=== PATIENT | female | born 1945 | race African-American/Black ===

== ENCOUNTER 2017-01-13 14:30 | Inpatient (IN) | payer MEDICARE, OTHER ==
--- NOTE | ~2017-01-13 | DS ---
Discharge Summary [facility] [address] [place]. [address] NAME: NIECY CARIAS : 43 STATUS : DIS IN PAT#: [id number] AGE: 71 ADM/REG DATE : 01/13/17 MR#: [id number] REPORT SERV DATE: 02/18/17 DICTATED BY: SANGEETHA PAYNE DATE: 02/17/17 REPORT STATUS : Draft TRANSCRIBED BY: MODL DATE: 02/17/17 ADMISSION DATE: 01/13/2017 DISCHARGE DATE: 01/15/2017 Ms. Stinson is a 71-year-old female with a history of hypertension, who presented to the hospital with a complaint of abdominal pain, nausea, and vomiting. For further details, please refer to H and P dictated on 01/13/[address] Sesay. HOSPITAL COURSE: Upon presentation to the emergency room, preliminary workup included a CT of abdomen and pelvis, which was concerning for acute cholecystitis. Surgery was subsequently consulted. The patient was placed on IV antibiotics. She was also placed on IV PPI and was also placed on IV fluids. She was kept n.p.o. and Surgery was subsequently consulted. The patient was subsequently evaluated by Surgery with plans for surgical intervention. The patient was subsequently taken by Surgery for surgical intervention and the patient was subsequently discharged by Surgery. The patient was taken to surgery on 01/15/2017 for surgical intervention. The last time that I saw the patient was 01/15/2017. The patient was taken to the OR. Plans were for the patient to be taken to the OR for surgical intervention. I did not see the patient after this date as the patient was taken to the OR, and subsequently discharged by surgeon, so discharge planning, medication reconciliation, and discharge plans was performed by Surgery. DICTATED BY: MD BETSY Haddad/REKHA Sangeetha Payne MD / [id number] CC: MD JESS Haddad PAUL E
--- NOTE | ~2017-01-13 | HP ---
History And Physical [address] [place]. [address] NAME: NIECY GREEN : 43 STATUS : ADM IN [facility]#: [id number] AGE: 71 ADM/REG DATE : 01/13/17 MR#: [id number] REPORT SERV DATE: 01/14/17 DICTATED BY: TYRESE ORTEGA DATE: 01/13/17 REPORT STATUS : Draft TRANSCRIBED BY: MODGonzalez DATE: 01/13/17 DATE OF ADMISSION: 01/13/2017 POINT OF ENTRY: [facility] Emergency Department. CHIEF COMPLAINT: Abdominal pain, nausea, and vomiting. HISTORY OF PRESENT ILLNESS: Ms Green is a 71-year-old female with history of hypertension, who presents to the emergency department today with a three to four-day history of primarily epigastric abdominal pain with associated nausea and vomiting. The patient states that her symptoms began on Friday afternoon, it is primarily epigastric in location without any radiation described as cramping as well as sharp and stabbing in nature. The patient also has had multiple episodes of nausea and vomiting over the weekend as well. She also developed some diarrhea which began today. She denies any fevers, but does report some subjective chills and night sweats over the weekend. Initial evaluation in the emergency department was notable for a pulse of 105; white count 11.9. She was noted to be in acute kidney injury with a BUN of 29 and creatinine 1.78. Urinalysis was not a sterile sample. CT of the abdomen and pelvis showed a distended gallbladder with thickened wall as well as some inflammatory stranding concerning for acute cholecystitis. Right upper quadrant ultrasound was reportedly not concerning for acute cholecystitis, therefore she was admitted to the Hospitalist Service for further evaluation and management. REVIEW OF SYSTEMS: Comprehensive review of systems otherwise negative unless listed in history of present illness. PREVIOUS MEDICAL HISTORY: Hypertension. PAST SURGICAL HISTORY: 1. Right ankle surgery. 2. Tubal ligation. ALLERGIES: NO KNOWN DRUG ALLERGIES. HOME MEDICATIONS: 1. Norvasc 5 mg daily. 2. Nystatin topical cream p.r.n. SOCIAL HISTORY: Denies any tobacco, alcohol, or illicits. FAMILY MEDICAL HISTORY: Extensive family history of diabetes in both parents and siblings. LABS AND IMAGING: History And Physical [address] [place]. [address] NAME: NIECY GREEN : 43 STATUS : ADM IN PAT#: [id number] AGE: 71 ADM/REG DATE : 01/13/17 MR#: [id number] REPORT SERV DATE: 01/14/17 DICTATED BY: TYRESE ORTEGA DATE: 01/13/17 REPORT STATUS : Draft TRANSCRIBED BY: MODL DATE: 01/13/17 1. White count is 11.9, hemoglobin is 14.3, hematocrit is 43.1, and platelet count is 333. 2. Sodium is 140, potassium 3.1, chloride 103, carbon dioxide 27, BUN 29, creatinine 1.78, glucose is 121, calcium is 10.0, protein is 8.8, albumin is 3.5, bilirubin is 0.6, ALT is 35, AST 25, and alkaline phosphatase is 130. 3. Lipase is 116. 4. Lactic acid is pending at the time of dictation. 5. Urinalysis: Spec gravity is 1.028, cloudy, large leukocyte esterase with 93 red blood cells and greater than 180 white blood cells per high field with [address] scan of the abdomen and pelvis shows distended gallbladder with thickened wall as well as some pericholecystic inflammatory stranding concerning for acute cholecystitis. 7. Right upper quadrant ultrasound, per verbal report from the ER physician, was negative for acute cholecystitis. Per my discussion with Dr. Borjas of General Surgery, he personally reviewed both CT and abdominal ultrasound and did not notice any stones on either imaging as well as has low suspicion for acute cholecystitis. PHYSICAL EXAMINATION: VITAL SIGNS: Temperature is 98.0 degrees Fahrenheit, pulse is 105, respirations 14, saturating 96% on room air, and blood pressure 127/75. On recheck, blood pressure is now 117/75 and pulse of 82. GENERAL: The patient is awake and alert, in no acute distress. Resting comfortably in bed. She is a well-developed, well-nourished, -[place] female. Family is at bedside. HEENT: Atraumatic and normocephalic. Slightly dry mucous membranes. Pupils are equal, round, reactive to light and accommodation. Extraocular eye movement intact. No scleral icterus. NECK: No jugular venous distention. No carotid bruits. CARDIAC: Regular rate and rhythm. No murmurs, rubs, or gallops. Normal S1, S2. LUNGS: Clear to auscultation bilaterally. No wheezes, rhonchi, or crackles. ABDOMEN: Soft. She is tender to palpation over the epigastrium and right upper quadrant. In my opinion, she has a positive Mohan sign. She has no guarding or rigidity, but does have some mild rebound tenderness on right upper quadrant. Hypoactive bowel sounds throughout. EXTREMITIES: Warm and perfused. No cyanosis, clubbing, or edema. SKIN: Warm and dry. PSYCH: Affect appropriate. NEURO: Alert and oriented x3. Cranial nerves 2 through 12 grossly intact. Speech is normal. Gait not assessed. ASSESSMENT AND PLAN: Ms Green is a 71-year-old female, who presents with a few day history of epigastric abdominal pain with nausea and vomiting, and found to have evidence of dehydration, acute kidney injury, hypokalemia as well as imaging initially concerning for acute cholecystitis; however, now ruled out by right upper quadrant ultrasound. PROBLEM LIST: 1. Right upper quadrant and epigastric abdominal pain with nausea and vomiting. 2. Possible acute cholecystitis. 3. Leukocytosis. 4. Acute kidney injury and dehydration. History And Physical [address] [address] NAME: NIECY GREEN : 43 STATUS : ADM IN [facility]#: [id number] AGE: 71 ADM/REG DATE : 01/13/17 MR#: [id number] REPORT SERV DATE: 01/14/17 DICTATED BY: TYRESE ORTEGA DATE: 01/13/17 REPORT STATUS : Draft TRANSCRIBED BY: REKHA DATE: 01/13/17 5. Hypokalemia. 6. Hypertension. PLAN: 1. Right upper quadrant and epigastric abdominal pain with nausea, vomiting, unclear etiology at this time as CMP is unremarkable. CT scan as well as right upper quadrant ultrasound was possibly concerning for cholecystitis; however, Surgery upon further review does not think this is acute rivera based on imaging alone. We will place the patient empirically on some IV PPI. Follow General Surgical consultation in the morning. They have recommended a HIDA scan, which I have ordered. We will make the patient nothing by mouth, pending HIDA evaluation and General Surgical consultation. 2. Possible acute cholecystitis. CT was initially concerned for acute cholecystitis; however, repeat right upper quadrant ultrasound reportedly is negative for cholecystitis. Dr. Borjas of General Surgery reviewed both sets of imaging and I have discussed this case personally with him. We will make the patient nothing by mouth. Continue IV fluid hydration as well as empiric IV Zosyn until Dr. Borjas can see the patient in the morning. I have also ordered a HIDA scan, per his directions for the morning. 3. Leukocytosis, unclear etiology. Checking a chest x-ray as well as a repeat UA as it was not a sterile catch, follow up blood cultures. Checking procalcitonin as well as lactic acid level. 4. Acute kidney injury and dehydration. Provide aggressive IV fluid hydration. 5. Hypokalemia. Repleting p.r.n. 6. DVT prophylaxis. Lovenox subcu. CODE STATUS: The patient wished to be full code. JCB/MODL Tyrese Ortega MD / [id number] CC: Juanita Aj M.D. Clifford Vargas, PHD
--- NOTE | ~2017-01-13 | OP ---
Record Of Operation [facility] [address] [place]. [address] NAME: NIECY GREEN : 43 STATUS : DIS IN PAT#: [id number] AGE: 71 ADM/REG DATE : 01/13/17 MR#: [id number] REPORT SERV DATE: 01/17/17 DICTATED BY: AGUSTÍN BAIRES DATE: 01/17/17 REPORT STATUS : Draft TRANSCRIBED BY: MODL DATE: 01/17/17 DATE OF PROCEDURE: 01/15/2017 PREOPERATIVE DIAGNOSIS: Cholecystitis. POSTOPERATIVE DIAGNOSIS: Acute on chronic cholecystitis. PROCEDURE PERFORMED: Laparoscopic cholecystectomy. SURGEON: Agustín Baires M.D. ANESTHESIA: General. ESTIMATED BLOOD LOSS: 5 mL. SPECIMEN REMOVED: Gallbladder. BRIEF HISTORY: Ms Green is a 71-year-old female, presents with acute onset of abdominal pain, and nausea and vomiting. Workup in the emergency room did not reveal any gallstones; however, HIDA scan demonstrated nonvisualization of the gallbladder consistent with cholecystitis. She presents today for cholecystectomy. FINDINGS AT TIME OF PROCEDURE: Ms Green's gallbladder was acute and chronically inflamed. Limited examination of her liver, stomach, small and large bowel revealed no other obvious abnormalities. DESCRIPTION OF PROCEDURE: Following informed consent, the patient was taken to the operating room and placed supine on the OR table. After successful induction of general endotracheal anesthesia, her abdomen was prepped and draped in usual sterile fashion. An umbilical skin incision was made and skin hooks were used to elevate the skin edges and anterior rectus fascia. There was a small umbilical hernia defect, and we were able to use this as a portal of entry into the abdominal cavity. A non-bladed 5 mm trocar was then inserted through this orifice and connected to insufflation tubing, and the peritoneal cavity was insufflated with carbon dioxide to a resting pressure of 15 mmHg. A 5 mm laparoscope was then introduced. The underlying bowel and vascular structures were carefully inspected and noted to be free from injury from initial trocar insertion. Three additional trocars were placed under direct visualization, a 10 mm subxiphoid epigastric trocar followed by two 5 mm trocars placed in the right upper quadrant. The gallbladder was grasped at its fundus and retracted in lateral and cephalad direction toward the patient's right shoulder blade. The infundibulum of the gallbladder was grasped and retracted inferiorly and laterally toward the patient's right anterior superior iliac spine. Cystic duct and cystic artery were dissected free from the underlying fatty peritoneal structures and once a critical view of safety was obtained and both these structures were seen to clearly transverse into the infundibulum of the gallbladder, they were both triply clipped and ligated, and divided with scissors. The gallbladder was then dissected free from the gallbladder fossa using blunt dissection and cautery. It was placed inside an endoscopic retrieval pouch and removed from Record Of Operation [address] [address] NAME: NIECY GREEN : 43 STATUS : DIS IN PAT#: [id number] AGE: 71 ADM/REG DATE : 01/13/17 MR#: [id number] REPORT SERV DATE: 01/17/17 DICTATED BY: AGUSTÍN BAIRES DATE: 01/17/17 REPORT STATUS : Draft TRANSCRIBED BY: REKHA DATE: 01/17/17 the 10 mm trocar site, intact, and without incident. Gallbladder fossa was copiously irrigated. Hemostasis was secured with cautery and there was no evidence of bile leakage from the gallbladder fossa or cystic duct stump. The two 5 mm trocars were removed followed by the 10 mm subxiphoid trocar. The sites were observed. Hemostasis was found to be secured. The peritoneal cavity was desufflated. Laparoscope was removed. Fascia at the 10 mm umbilical trocars were approximated using 0 Vicryl suture. Skin edges of all four incisions were approximated using 4-0 Monocryl subcuticular suture and Dermabond. At the completion of the case, all sponge and needle counts were correct. The patient was extubated and transferred to recovery room in satisfactory condition, having suffered no apparent perioperative complications. CATERINA/REKHA Agustín Baires M.D. / [id number] CC: MD NANCY Haddad
--- NOTE | ~2017-01-13 | CN ---
Consultation Report [facility] [address] [place]. [address] NAME: NIECY GREEN : 43 STATUS : ADM IN PAT#: [id number] AGE: 71 ADM/REG DATE : 01/13/17 MR#: [id number] REPORT SERV DATE: 01/14/17 DICTATED BY: AGUSTÍN BAIRES DATE: 01/14/17 REPORT STATUS : Draft TRANSCRIBED BY: MODGonzalez DATE: 01/14/17 CONSULTATION NOTE DATE OF CONSULTATION: 01/14/2017 REASON FOR REQUEST: Evaluation for possible cholecystitis. HISTORY: Ms. Green is a 71-year-old female who was in her usual state of health when Friday she started developing abdominal pain. She states the pain was diffusely across her whole abdomen and did not localize at all with associated nausea and vomiting. She never experienced pain symptoms before. The pain is now completely resolved. She denies any fever, chills, or jaundice. No other associated symptoms or problems. She has a primary care physician, but never had any GI issues in the past. She denies any intolerance to fatty foods and no radiation to her back. She also developed diarrhea as well. She recently lost her cousin suddenly and unexpectedly on Friday after taking him to [facility] or [facility] Room. He actually suddenly in the car, so she has been under quite a bit of stress since this event. In the emergency Room, she had a CT scan performed that demonstrated a distended gallbladder but no gallstones were seen and no intravenous contrast was administered so really could not evaluate for enhancement of the gallbladder wall. She then had an ultrasound performed that again showed gallbladder distention but no gallstones, and she did not have a Mohan sign. PAST MEDICAL HISTORY: Significant for hypertension. PREVIOUS SURGERIES: Include a tubal ligation, ankle surgery. MEDICATIONS: Norvasc. ALLERGIES: NO KNOWN DRUG ALLERGIES. SOCIAL HISTORY: She denies tobacco, alcohol, or drug use. FAMILY HISTORY: Significant for diabetes and hypertension. REVIEW OF SYSTEMS: Comprehensive 12-point review of systems obtained and completely negative other than what is mentioned in history of present illness. PHYSICAL EXAMINATION: VITAL SIGNS: Temperature is 98.2, pulse 95, respirations 18, and blood pressure 120/64. GENERAL: She is a well-developed female, in no acute cardiopulmonary distress. HEENT: Pupils are equal, round, and reactive to light. Extraocular movements are intact. Conjunctivae are nonicteric. NECK: Supple. She has no jugular venous distention. No carotid bruits. No cervical Consultation Report [facility] [place] [address] [place]. [address] NAME: NIECY GREEN : 43 STATUS : ADM IN [facility]#: [id number] AGE: 71 ADM/REG DATE : 01/13/17 MR#: [id number] REPORT SERV DATE: 01/14/17 DICTATED BY: AGUSTÍN BAIRES DATE: 01/14/17 REPORT STATUS : Draft TRANSCRIBED BY: REKHA DATE: 01/14/17 lymphadenopathy. PULMONARY: Normal respiratory effort. Breath sounds are clear. CARDIOVASCULAR: Regular rate and rhythm. ABDOMEN: Soft. She is completely nontender with normoactive bowel sounds and no peritoneal signs. No Mohan sign. EXTREMITIES: No clubbing, cyanosis, or edema. LABORATORY DATA: White blood cell count 8.9, hematocrit 35, platelet count 276. Sodium 143, potassium 3.4, chloride 107, CO2 of 24, BUN 27, creatinine 1.4, glucose 90. CT scan of the abdomen and pelvis was obtained and demonstrates a distended gallbladder but no gallstones and ultrasound reveals same. ASSESSMENT: Nausea, vomiting, diarrhea, and dehydration with hypokalemia and renal insufficiency. PLAN: Agree with aggressive IV fluid hydration and correction of electrolytes. We will obtain a HIDA scan on her to help clarify whether this is an acute cholecystitis. If it is she will likely require a cholecystectomy. We will await the HIDA scan result and continue to follow this patient along with you. CATERINA/REKHA Agustín Baires M.D. / [id number] CC: Sanjana Bonner
[2017-01-13 12:10] LABS: BASOPHILS 0.2 %; BASOPHILS ABSOLUTE 0.02 10/3/uL (0.0-0.16); EOSINOPHILS 3.3 %; EOSINOPHILS ABSOLUTE 0.39 10/3/uL (0.0-0.53); HEMATOCRIT 43.1 % (36.0-48.0); HEMOGLOBIN 14.3 g/dL (12.0-16.0); IMMATURE GRANULOCYTES 0.2 %; IMMATURE GRANULOCYTES ABSOLUTE 0.02 10/3/uL (0.0-0.11); LYMPHOCYTES ABSOLUTE 2.62 10/3/uL (0.67-4.30); MEAN CORPUSCULAR HEMOGLOB 28.4 pg (26.0-34.0); MEAN CORPUSCULAR VOLUME 85.5 fL (80-100); MEAN PLATELET VOLUME 10.1 fL (9.2-13.0); MONOCYTES 6.6 %; MONOCYTES ABSOLUTE 0.79 10/3/uL (0.21-1.20); NEUTROPHILS 67.7 %; NEUTROPHILS ABSOLUTE 8.06 10/3/uL (2.02-8.40); PLATELET COUNT 333 10/3/uL (150-400); RBC DISTRIBUTION WIDTH 14.9 % (12.0-16.0); RED CELL COUNT 5.04 10/6/uL (4.0-5.6)
[2017-01-13 12:11] LABS: ER CBC TAT 0 Hrs 03 Mins; MANUAL DIFF NO %; MEAN CORPUS HGB CONC 33.2 g/dL (32.0-36.0); WHITE BLOOD CELLS 11.9 10/3/uL (4.5-10.5)
[2017-01-13 12:30] LABS: A/G RATIO 0.7 (0.7-1.9); ALBUMIN 3.5 G/DL (3.5-5.0); ALKALINE PHOSPHATASE 130 U/L (45-117); CHLORIDE, SERUM 103 MMOL/L (96-112); CO2 (CARBON DIOXIDE) 27 MMOL/L (24-34); SGOT(AST) 25 U/L (5-40); SGPT(ALT) 35 U/L (5-65); SODIUM, SERUM 140 MMOL/L (135-148); TOTAL BILIRUBIN 0.6 MG/DL (0-1.2); TOTAL PROTEIN 8.8 G/DL (6.0-8.5)
[2017-01-13 12:32] LABS: BUN (BLOOD UREA NITROGEN) 29 MG/DL (6-23); CREATININE 1.78 MG/DL (0.55-1.02); GFR AFRICAN AMERICAN 32 ML/MIN (>=60); GFR NON AFRICAN AMERICAN 28 ML/MIN (>=60); GLOBULIN 5.3 G/DL (2.5-4.1); GLUCOSE, SERUM 121 MG/DL (60-99); POTASSIUM, SERUM 3.1 MMOL/L (3.5-5.3)
[2017-01-13 14:59] LABS: ASCORBIC ACID (UR NOT ORDER) NEG (NEG); BILIRUBIN, URINE NEGATIVE (NEG); ER URINALYSIS TAT 0 Hrs 10 Mins; KETONE, URINE NEGATIVE (NEG); LEUKOCYTE ESTERASE(NOT OR LARGE (NEG); NITRITE (URINE) NEG (NEG)
[2017-01-13 15:00] LABS: WBC (NOT ORDERED) (RFLEX) > 182 (0-5)
[2017-01-13] MEDS ORDERED: NORV5 PO (15:26)
[2017-01-13] MEDS ORDERED: NYSTATIN-TRIAMC15 GM TOP (15:30)
[2017-01-13 23:13] LABS: PROCALCITONIN 0.51 ng/mL (<0.5)
[2017-01-14 05:21] LABS: BASOPHILS 0.3 %; BASOPHILS ABSOLUTE 0.03 10/3/uL (0.0-0.16); EOSINOPHILS 5.5 %; EOSINOPHILS ABSOLUTE 0.49 10/3/uL (0.0-0.53); IMMATURE GRANULOCYTES 0.2 %; IMMATURE GRANULOCYTES ABSOLUTE 0.02 10/3/uL (0.0-0.11); LYMPHOCYTES 22.8 %; LYMPHOCYTES ABSOLUTE 2.02 10/3/uL (0.67-4.30); MEAN CORPUSCULAR HEMOGLOB 27.5 pg (26.0-34.0); MEAN CORPUSCULAR VOLUME 85.8 fL (80-100); MEAN PLATELET VOLUME 9.9 fL (9.2-13.0); MONOCYTES 6.3 %; MONOCYTES ABSOLUTE 0.56 10/3/uL (0.21-1.20); NEUTROPHILS 64.9 %; NEUTROPHILS ABSOLUTE 5.75 10/3/uL (2.02-8.40); PLATELET COUNT 276 10/3/uL (150-400); RBC DISTRIBUTION WIDTH 14.9 % (12.0-16.0); RED CELL COUNT 4.08 10/6/uL (4.0-5.6); WHITE BLOOD CELLS 8.9 10/3/uL (4.5-10.5)
[2017-01-14 05:35] LABS: HEMOGLOBIN 11.2 g/dL (12.0-16.0); MANUAL DIFF NO %
[2017-01-14 05:41] LABS: BUN (BLOOD UREA NITROGEN) 27 MG/DL (6-23); CHLORIDE, SERUM 107 MMOL/L (96-112); CO2 (CARBON DIOXIDE) 24 MMOL/L (24-34); CREATININE 1.45 MG/DL (0.55-1.02); GFR AFRICAN AMERICAN 42 ML/MIN (>=60); GFR NON AFRICAN AMERICAN 36 ML/MIN (>=60); PHOSPHORUS, SERUM 3.9 MG/DL (2.5-4.5); POTASSIUM, SERUM 3.4 MMOL/L (3.5-5.3); SODIUM, SERUM 143 MMOL/L (135-148)
[2017-01-14 05:47] LABS: ALBUMIN 2.7 G/DL (3.5-5.0); CALCIUM, SERUM 8.6 MG/DL (8.5-10.4); GLUCOSE, SERUM 90 MG/DL (60-99)
[2017-01-14 05:47] LABS: ASCORBIC ACID (UR NOT ORDER) NEG (NEG); BILIRUBIN, URINE NEGATIVE (NEG); KETONE, URINE NEGATIVE (NEG); LEUKOCYTE ESTERASE(NOT OR NEG (NEG); WBC (NOT ORDERED) (RFLEX) 1 (0-5)
[2017-01-14 05:54] LABS: CALCIUM IONIZED 4.69 MG/DL (3.80-4.80)
[2017-01-14 06:09] LABS: B NATRIURETIC PEPTIDE (BNP) 5.8 PG/ML (< 100.0)
[2017-01-15 06:34] LABS: BASOPHILS 0.3 %; BASOPHILS ABSOLUTE 0.02 10/3/uL (0.0-0.16); EOSINOPHILS 5.7 %; EOSINOPHILS ABSOLUTE 0.38 10/3/uL (0.0-0.53); HEMOGLOBIN 10.9 g/dL (12.0-16.0); IMMATURE GRANULOCYTES 0.1 %; IMMATURE GRANULOCYTES ABSOLUTE 0.01 10/3/uL (0.0-0.11); LYMPHOCYTES 28.2 %; LYMPHOCYTES ABSOLUTE 1.89 10/3/uL (0.67-4.30); MEAN CORPUS HGB CONC 32.1 g/dL (32.0-36.0); MEAN CORPUSCULAR HEMOGLOB 27.5 pg (26.0-34.0); MEAN CORPUSCULAR VOLUME 85.9 fL (80-100); MEAN PLATELET VOLUME 9.9 fL (9.2-13.0); MONOCYTES 6.7 %; MONOCYTES ABSOLUTE 0.45 10/3/uL (0.21-1.20); NEUTROPHILS ABSOLUTE 3.96 10/3/uL (2.02-8.40); PLATELET COUNT 323 10/3/uL (150-400); RBC DISTRIBUTION WIDTH 14.7 % (12.0-16.0); RED CELL COUNT 3.96 10/6/uL (4.0-5.6); WHITE BLOOD CELLS 6.7 10/3/uL (4.5-10.5)
[2017-01-15 06:38] LABS: MANUAL DIFF NO %
[2017-01-15 06:52] LABS: ALBUMIN 2.9 G/DL (3.5-5.0); CHLORIDE, SERUM 108 MMOL/L (96-112); CO2 (CARBON DIOXIDE) 28 MMOL/L (24-34); CREATININE 1.15 MG/DL (0.55-1.02); GFR AFRICAN AMERICAN 55 ML/MIN (>=60); GFR NON AFRICAN AMERICAN 47 ML/MIN (>=60); GLUCOSE, SERUM 82 MG/DL (60-99); SGOT(AST) 18 U/L (5-40); SGPT(ALT) 23 U/L (5-65); SODIUM, SERUM 143 MMOL/L (135-148); TOTAL BILIRUBIN 0.8 MG/DL (0-1.2); TOTAL PROTEIN 7.1 G/DL (6.0-8.5)
[2017-01-15 06:54] LABS: A/G RATIO 0.7 (0.7-1.9); ALKALINE PHOSPHATASE 101 U/L (45-117); BUN (BLOOD UREA NITROGEN) 14 MG/DL (6-23); GLOBULIN 4.2 G/DL (2.5-4.1); POTASSIUM, SERUM 4.5 MMOL/L (3.5-5.3)
[2017-01-15 08:50] LABS: FERRITIN 187 NG/ML (8-252); IRON BINDING CAPACITY 175 MCG/DL (225-410); IRON, SERUM 51 MCG/DL (35-150)
[2017-01-15 10:10] LABS: SMEAR FOR ABNORMAL CELLS SEE PATHOLOGY REPORT
[2017-01-15] MEDS ORDERED: PCET PO (16:09)
[2017-01-15] MEDS ORDERED: ZOFRAN4 PO (16:10)
== END 2017-01-15 22:26 | disposition home or self-care (01) | DRG 418 ==
LOC: ER 14:30 → 5SO 22:21
PROVIDERS: Emergency Medicine; Hospitalist; Internal Medicine; Surgery
PROC: 0FT44ZZ Resection of Gallbladder, Percutaneous Endoscopic Approach (ICD-10-PCS; principal; 2017-01-15 11:15)
DX: K81.2 Acute cholecystitis with chronic cholecystitis (principal); N17.9 Acute kidney failure, unspecified; I10 Essential (primary) hypertension; E86.0 Dehydration; E87.6 Hypokalemia; Z79.899 Other long term (current) drug therapy; Z83.3 Family history of diabetes mellitus; Z82.49 Family history of ischemic heart disease and other diseases of the circulatory system; D64.9 Anemia, unspecified; Z98.890 Other specified postprocedural states
CPT/HCPCS: 71020; 74176; 76705; 78226; 80053; 80069; 81001; 82272; 82330; 82728; 83540; 83550; 83605; 83690; 83880; 84145; 84466; 85025; 87040; 87086; 88304; 96365; 96366; 96375; 99291; 99292; A9270-GY; A9537; C9113; J2250; J2370; J2405; J2543; J2710; J3010; Q9967